=== PATIENT | female | born 1960 | race Hispanic/Latino ===

== ENCOUNTER 2017-05-25 06:59 | Day surgery (SDC) | payer MEDICAID ==
[2017-05-25 08:07] LABS: Basophils % (Auto) 0.8 % (0.0-1.8); Eosinophils % (Auto) 3.4 % (0.0-4.3); Hematocrit 34.3 % (30.3-42.9); Hemoglobin 11.5 gm/dl (10.1-14.3); Mean Corpuscular HGB Conc 34 % (30-34); Mean Corpuscular Hemoglobin 28 pg (28-32); Mean Corpuscular Volume 82 fl (79-97); Platelet Count 191 K/mm3 (140-440); Red Blood Count 4.17 M/mm3 (3.65-5.03); Red Cell Distribution Width 13.3 % (13.2-15.2); White Blood Count 6.4 K/mm3 (4.5-11.0)
[2017-05-25 08:18] LABS: INR 0.94 (0.87-1.13); Partial Thromboplastin Time 25.2 Sec. (24.2-36.6)
[2017-05-25] MEDS ORDERED: VERSED IV ONE (09:00)
[2017-05-25] MEDS ORDERED: SUBLIMAZE IV ONE (09:00)
[2017-05-25 10:55] VITALS: BP 155/85
--- NOTE | 2017-05-25 11:57 | Cat Scan Report ---
CT NECK WITHOUT CONTRAST CT CHEST WITHOUT CONTRAST CT ABDOMEN WITHOUT CONTRAST HISTORY: Left breast cancer, lymphadenopathy. TECHNIQUE: Helical CT without IV contrast. Sagittal and coronal reformatted images. FINDINGS: This examination was scheduled to be a CT guided biopsy of right cervical lymphadenopathy. There were no previous studies at this facility for comparison. A PET CT was performed at an outlying facility and was not available. There is no evidence for cervical adenopathy. Scattered millimetric benign appearing cervical lymph nodes noted. No pathologic lymph nodes are appreciated. The thyroid gland is normal. Soft tissue structures of the neck are within normal limits. The imaged brain is unremarkable. The lungs are clear. No significant interstitial or air space disease. There are 2 or 3 tiny right lung nodules measuring less than 5 mm. These may represent noncalcified granulomas. I'm not entirely convinced these represent metastasis. They are far too small to biopsy. Heart and mediastinal structures are within normal limits. There are are a few borderline peritracheal and AP window lymph nodes measuring up to 1.3 cm. No bulky thoracic adenopathy. Right breast prosthesis is intact. The liver, biliary system, pancreas, spleen, kidneys and right adrenal gland are unremarkable. 1 cm nodule in the left adrenal gland probably represents an adrenal adenoma. The bowel loops are normal caliber. There is a mildly enlarged adis hepatis lymph node measuring 1.9 x 1.8 cm which could not be percutaneously biopsied due to position. No additional suspicious lymph nodes in the abdomen. IMPRESSION: No definite suspicious adenopathy amenable to biopsy is detected in the neck, chest or abdomen. Please see above. These findings were discussed with Dr. Mercado. Consider followup.
== END 2017-05-25 10:50 | disposition home or self-care (01) ==
LOC: CATHLABREC 06:59 → EDSTATUS 07:30 → CATHLABREC 10:50
PROVIDERS: ATTEND Internal Medicine Hematology & Oncology
DX: C50.912 Malignant neoplasm of unspecified site of left female breast (principal); R59.1 Generalized enlarged lymph nodes; Z53.8 Procedure and treatment not carried out for other reasons
CPT/HCPCS: 36415; 70490; 71250; 74150; 85025; 85610; 85730